=== PATIENT | female | born 1935 | race Caucasian/White ===

== ENCOUNTER → 2018-06-12 | Outpatient (CLI) | payer OTHER ==
[~2018-06-12] MED LIST: COZAAR 50 MG TA50 M2 PO
== END ==
LOC: ULTRA 08:43
DX: M47.812 Spondylosis without myelopathy or radiculopathy, cervical region (principal); K80.20 Calculus of gallbladder without cholecystitis without obstruction; N28.1 Cyst of kidney, acquired

== ENCOUNTER → 2020-11-10 | Outpatient (CLI) | payer OTHER | LOC: RAD 12:12 | PROVIDERS: ATTEND Family Medicine | DX: R06.09 Other forms of dyspnea (principal) ==